=== PATIENT | female | born 1960 | race Caucasian/White ===

== ENCOUNTER → 2016-04-29 | Outpatient (CLI) | payer MEDICARE, MEDICAID ==
[~2016-04-29] MED LIST: ASPIR 8181 MG PO; BENADRYL-DPS25 MG PO; GAS RELIEF 8080 MG PO; HYDROCODONE 10M10 MG PO; LISINOPRIL5 MG PO; MYRBETRIQ50 MG PO; OMEPRAZOLE20 MG PO; PRESERVISION A1 EAC2 PO; RELPAX40 MG PO; ZOFRAN DPS8 MG PO
== END | disposition home or self-care (01) ==
LOC: RAD.S 13:39
DX: N20.0 Calculus of kidney (principal)